=== PATIENT | male | born 1970 | race Caucasian/White ===

== ENCOUNTER 2019-06-27 17:45 | Observation (INO) | payer SELFPAY ==
[2019-06-27] MEDS ORDERED: niCARdipine HCL 25 MG in SODIUM CHLORIDE 0.9% 250ML 240 ML IVPB SCH (18:00)
--- NOTE | 2019-06-27 18:07 | ED.PDOC ---
History of Present Illness - General Chief Complaint: Blood Pressure Problem Stated Complaint: elevated BP,Anxiety Time Seen by Provider: 06/27/19 17:48 Source: patient, RN notes reviewed, Vital Signs reviewed Exam Limitations: no limitations - History of Present Illness Initial Comments: 48 y/o male here for elevated blood pressure over "the last 12-14 hours". He reports that he has difficult to control blood pressure and had been evaluated for pheochromocytoma. He said his kidneys were too weak to stand the dye they would use to find it so he just left it alone. He takes no meds. At this time he denies, h/a or chest pain Allergies/Adverse Reactions: Allergies NO KNOWN ALLERGY Allergy (Verified 06/27/19 18:07) Review of Systems - Review of Systems Constitutional: States: diaphoresis EENTM: States: no symptoms reported Respiratory: States: no symptoms reported Cardiology: States: no symptoms reported Gastrointestinal/Abdominal: States: no symptoms reported Genitourinary: States: no symptoms reported Musculoskeletal: States: no symptoms reported Skin: States: no symptoms reported Neurological: States: anxiety Hematologic/Lymphatic: States: no symptoms reported Family Medical History - Family History Father Family History: Unknown Living Status: Unknown Physical Exam - Physical Exam General Appearance: Alert, Comfortable, No apparent distress Eye Exam: bilateral normal Ears, Nose, Throat: hearing grossly normal, normal ENT inspection Neck: non-tender, full range of motion, supple Respiratory: chest non-tender, lungs clear, normal breath sounds, no respiratory distress Cardiovascular/Chest: regular rate, rhythm, no edema, no gallop, no JVD, no murmur Gastrointestinal/Abdominal: non tender, soft, no organomegaly Back Exam: normal inspection Extremity: normal range of motion, no pedal edema Neurologic: alert - normal gait, normal mood/affect, oriented x 3 Skin Exam: normal color Progress - Progress Progress: 06/27/19 18:16 EKG NSR 99, Incomplete RBBB, LVH, no STEMI QTc 456 Departure - Departure Clinical Impression: Hypertensive urgency Disposition: Admit Patient Condition: Fair Departure Forms: ED Discharge - Pt. Copy, Patient Portal Self Enrollment Instructions: DI for High Blood Pressure
[2019-06-27] MEDS ORDERED: niCARdipine HCL 2.5 MG/ML AMP IVPB ONE (18:09)
[2019-06-27] MEDS ORDERED: SODIUM CHLORIDE 0.9% 250ML 250 ML ONE (18:09)
--- NOTE | 2019-06-27 18:26 | RAD ---
EXAM: Chest,1 View CLINICAL INDICATION: 48-year-old male with hypertensive urgency. TECHNIQUE: Single view, AP portable chest was obtained. COMPARISON: None. FINDINGS: Unremarkable cardiac and mediastinal silhouette. Heart size is normal. Tortuous thoracic aorta. Lungs are clear without focal opacity, pneumothorax or pleural effusions. The visualized bones are within normal limits. IMPRESSION: No acute cardiopulmonary abnormalities. Electronically signed by: Debra Varma MD 06/27/2019 6:24 PM CDT
[2019-06-27] MEDS ORDERED: THIAMINE HCL 100 MG TAB PO ONE (18:35)
[2019-06-27] MEDS ORDERED: NICOTINE PATCH 21 MG TD ONE (20:02)
[2019-06-27] MEDS ORDERED: METOPROLOL TARTRATE 50 MG TAB PO SCH (21:00)
[2019-06-27] MEDS ORDERED: MORPHINE SULFATE INJ 10 MG/ML VIAL IV PRN (22:35)
[2019-06-27] MEDS ORDERED: SODIUM CHLORIDE 0.9% (FLUSH) 10 ML SYG IV PRN (22:35)
[2019-06-27] MEDS ORDERED: NITROGLYCERIN 0.4 MG 25 EA TAB SL PRN (22:35)
[2019-06-27] MEDS ORDERED: ACETAMINOPHEN 325 MG TAB PO PRN (22:35)
[2019-06-27] MEDS ORDERED: METOPROLOL TARTRATE INJ 5 MG/5 ML VIAL IV ONE (22:45)
[2019-06-27] MEDS ORDERED: cloNIDine HCL 0.1 MG TAB PO PRN (22:46)
[2019-06-27] MEDS ORDERED: IV SET AND CAP CHANGE INJ INJ SCH (23:00)
[2019-06-28] MEDS ORDERED: cloNIDine HCL 0.1 MG TAB ONE (00:15)
[2019-06-28 02:06] VITALS: TEMP 98
[2019-06-28] MEDS ORDERED: METOPROLOL TARTRATE INJ 5 MG/5 ML VIAL IV ONE (03:00)
[2019-06-28] MEDS ORDERED: cloNIDine HCL 0.1 MG TAB PO PRN (03:33)
[2019-06-28] MEDS ORDERED: METOPROLOL TARTRATE 50 MG TAB PO SCH (09:00)
[2019-06-28] MEDS ORDERED: ASPIRIN TABLET 325 MG TAB PO SCH (09:00)
[2019-06-28] MEDS ORDERED: SODIUM CHLORIDE 0.9% (FLUSH) 10 ML SYG IV SCH (09:00)
[2019-06-28] MEDS ORDERED: amLODIPine BESYLATE 5 MG TAB PO SCH (09:30)
[2019-06-28 10:39] VITALS: O2SAT 100
[2019-06-28] MEDS ORDERED: POTASSIUM CHLORIDE 20 MEQ TAB PO ONE (11:00)
[2019-06-28 11:22] VITALS: BP 166/99
--- NOTE | 2019-06-28 11:55 | SSS ---
SUPERVISING PHYSICIAN: Vernon Coulter MD DATE OF ADMISSION: 06/27/19 DATE OF DISCHARGE: 06/28/19 DISCHARGE DIAGNOSIS: 1. Symptomatic hypertensive crisis with admitting blood pressure of 262/141, requiring a Cardene drip in the Emergency Room. 2. History of hypertension, presently on no medications. 3. History of cerebrovascular accident/transient ischemic attack in February of 2017. 4. Tobacco abuse. 5. Anxiety. 6. Poor medical compliance. 7. Questionable history of pheochromocytoma that has not been treated. HISTORY OF PRESENT ILLNESS: This is a 48-year-old male patient who recently moved to [place] 2 or 3 months ago. He is actually going through a divorce and some personal issues. He has had a long history of hypertension and has actually been treated in the past for hypertension. For 1 to 2 days prior to coming to the Emergency Room, he felt that his blood pressure was up. He was actually having a headache with pounding in his head and chest, but there was no chest pain. He came to the Emergency Room and his vital signs were temperature 97.5, heart rate 105, blood pressure 262/141, respiratory rate 20, O2 saturation 96%. He was started on a Cardene drip and his blood pressure did come down to 168/118 and then was started on some IV metoprolol. Lab studies were drawn and his CBC was unremarkable. His potassium was slightly low at 3.2 and his AST was high at 49. Creatinine kinase was 330, but his other cardiac enzymes were negative. Urinalysis showed a small amount of urine blood with a small amount of urine bilirubin and 3 to 5 urine RBCs. His toxicology screen was positive for opiates. Otherwise, it was negative. His chest x-ray showed no acute cardiopulmonary abnormalities. Due to his extensive family history as well as his malignant hypertension on admission, he was placed in observation in the hospital. HOSPITAL COURSE: The Cardene drip was titrated off and he was started on metoprolol tartrate. Amlodipine was also added. An echocardiogram was done and the results are still pending. His blood pressure has somewhat stabilized. He has agreed to followup with Dr. Chowdhury at [facility] after discharge. PAST MEDICAL HISTORY: 1. Hypertension. 2. Questionable pheochromocytoma that has not been treated. 3. Transient ischemic attack/cerebrovascular accident in February of 2017. 4. Chronic insomnia. 5. Anxiety. 6. Past history of heavy alcohol intake although he no longer drinks large amounts. 7. Tobacco abuse. PAST SURGICAL HISTORY: 1. Shoulder repair x2. 2. Foot surgery. 3. Hand surgery. ALLERGIES: NO KNOWN DRUG ALLERGIES. FAMILY HISTORY: Positive for diabetes, hypertensive heart disease. SOCIAL HISTORY: He moved to [place] about 3 months ago. He is in the process of getting a divorce. He is unemployed. He smokes approximately 1 pack of cigarettes per day. He now drinks on a social basis although he used to be a heavy drinker about 10 years ago. REVIEW OF SYSTEMS: GENERAL: Positive for fatigue. Negative for fever or weight changes. HEENT: Negative for sinus symptoms, ear pain, vision changes or sore throat. RESPIRATORY: Negative for wheezing, coughing or shortness of breath. CARDIAC: Negative for chest pain, palpitations or tachycardia. Otherwise, as per history of present illness. GASTROINTESTINAL: Negative for nausea, vomiting, diarrhea, constipation or abdominal pain. GENITOURINARY: Negative for hematuria, dysuria or polyuria. MUSCULOSKELETAL: Positive for chronic back pain. Negative for arthralgias, myalgias. SKIN: Positive for some mild diaphoresis. Negative for lesions or rashes. NEUROLOGIC: Positive for anxiety and headache. Negative for seizures or dizziness. PHYSICAL EXAMINATION: VITAL SIGNS: Temperature 98, heart rate 78, blood pressure 168/103, respiratory rate 18, O2 saturation 98% on room air. GENERAL: This is a 48-year-old male patient sitting up in his chair in his room. He is in no acute distress. HEENT: Normocephalic, atraumatic. Pupils are equal and reactive. Oropharynx is clear. NECK: Supple without mass. RESPIRATORY: Essentially clear to auscultation bilaterally. CHEST: There is equal rise and fall of the chest with inspiration and expiration. CARDIOVASCULAR: Regular rate and rhythm. GASTROINTESTINAL: Abdomen is soft, nondistended, nontender. Bowel sounds are positive. EXTREMITIES: No cyanosis, clubbing or edema. NEUROLOGIC: Awake, alert and oriented times three. Cranial nerves II-XII are grossly intact as tested. SKIN: Warm and dry. LABORATORY: Followup labs are fairly unremarkable except his potassium is slightly low at 3.3. His echocardiogram report is pending. DISCHARGE PLAN: The patient will be discharged home in stable condition. He is to increase his activity as tolerated and resume his previous diet. He does not take any home medications at this time although he says he takes [id number] ibuprofen and Tylenol. We discussed the maximum amounts to be taken in one day of each of those medication. We discussed the medications that I ordered, which are metoprolol tartrate and amlodipine as well as giving him p.r.n. clonidine for an elevated blood pressure as needed. I also recommended he take a daily aspirin. I have gotten him a followup appointment with Dr. Eliel Chowdhury on 07/03/19 at noon at [facility]. He is to return to the hospital or followup with Dr. Chowdhury for any problems or complications. DISCHARGE MEDICATIONS: 1. Amlodipine 5 mg daily. 2. Aspirin 325 mg daily. 3. Clonidine 0.1 mg tablet q.6h. p.r.n. for systolic blood pressure greater than 190 or diastolic blood pressure greater than 100. 4. Metoprolol tartrate 50 mg b.i.d. #[id number] MTDD
[2019-06-28] MEDS ORDERED: diphenhydrAMINE HCL 25 MG CAP PO SCH (21:00)
== END 2019-06-28 13:10 | disposition home or self-care (01) ==
LOC: ER 17:45 → MS 20:33
PROVIDERS: ADMIT Nurse Practitioner Acute Care; ATTEND Nurse Practitioner Acute Care
DX: I16.0 Hypertensive urgency (principal); I11.9 Hypertensive heart disease without heart failure; F17.210 Nicotine dependence, cigarettes, uncomplicated; F41.9 Anxiety disorder, unspecified; R51 Headache; F51.04 Psychophysiologic insomnia; I45.10 Unspecified right bundle-branch block; F10.20 Alcohol dependence, uncomplicated; Y90.9 Presence of alcohol in blood, level not specified; Z79.82 Long term (current) use of aspirin; Z79.899 Other long term (current) drug therapy; Z86.73 Personal history of transient ischemic attack (TIA), and cerebral infarction without residual deficits; Z63.5 Disruption of family by separation and divorce
CPT/HCPCS: 96366; 96365; 96375; 96376; J2060 ×2; J7050; 82553; 80053 ×2; 80307; 80061; 36415 ×2; 81001; 85025 ×2; 82550; 84484; 71045; 99406; 99285; 93306; 93005 ×3; G0378

== ENCOUNTER 2020-01-28 17:54 | Emergency (ER) | payer SELFPAY ==
[2020-01-28] MEDS ORDERED: KETOROLAC TROMETHAMINE INJ 30 MG/ML VIAL IV ONE (18:25)
[2020-01-28] MEDS ORDERED: METOCLOPRAMIDE HCL INJ 10 MG/2 ML VIAL IV ONE (18:25)
[2020-01-28] MEDS ORDERED: diphenhydrAMINE HCL 50 MG/ML VIAL IV STA (18:25)
[2020-01-28] MEDS ORDERED: METOPROLOL TARTRATE INJ 5 MG/5 ML VIAL IV ONE ×3 (18:26→19:11)
--- NOTE | 2020-01-28 19:01 | ED.PDOC ---
History of Present Illness - General Chief Complaint: Headache Stated Complaint: headache, hypertension, lethargic Time Seen by Provider: 01/28/20 18:25 - History of Present Illness Initial Comments: PATIENT PRESENTS WITH A HEADACHE, HE HAS CHRONIC MEADOWS FOR MANY YEARS DUE TO DEGENERATIVE C SPINE PROBLEMS. HE IS SUPPOSED TO BE ON MULTIPLE BLOOD PRESSURE MEDS BUT HAS NOT TAKE IN WEEKS, BECAUSE HE RAN OUT AND "DOESN'T HAVE INSURANCE". MEADOWS TODAY IS TYPICAL FOR HIS HEADACHES, HE CAME TO [facility] PRIMARILY BECAUSE BLOOD PRESSURE WAS MORE ELEVATED THAN USUAL AT HOME. Timing/Duration: 4-6 hours Quality: severe Head Injury Location: frontal Recent Head Trauma: frequent headaches, chronic headaches Improving Factors: medication - OTC IBUPROFEN AND TYLENOL Worsening Factors: nothing Associated Symptoms: fatigue Allergies/Adverse Reactions: Allergies NO KNOWN ALLERGY Allergy (Verified 01/28/20 18:07) Home Medications: Ambulatory Orders Acetaminophen [8 Hour Arthritis Pain Rel] 1,950 mg PO DAILY 06/27/19 Cholecalciferol [Vitamin D3] 10,000 unit PO DAILY 06/27/19 DiphenhydrAMINE HCL [Benadryl] 100 mg PO BEDTIME 06/27/19 Diphenhydramine HCl (Sleep) [Unisom Sleepgels] 150 mg PO BEDTIME 06/27/19 Ibuprofen [Advil] 1,250 mg PO DAILY 06/27/19 Metoprolol Tartrate 50 mg PO BID #60 tab 06/28/19 amLODIPine BESYLATE [Norvasc] 5 mg PO DAILY #30 tab 06/28/19 cloNIDine HCL [Catapres] 0.1 mg PO Q6H PRN #20 tab 06/28/19 Aspirin [Aspirin 81 Low Dose] 81 mg PO DAILY 01/28/20 Metoprolol Succinate [Metoprolol Succinate ER] 100 mg PO DAILY #90 tab 01/28/20 amLODIPine BESYLATE [Norvasc] 5 mg PO DAILY #90 tab 01/28/20 Review of Systems - Review of Systems Constitutional: States: no symptoms reported EENTM: States: no symptoms reported Respiratory: States: no symptoms reported Cardiology: States: no symptoms reported Gastrointestinal/Abdominal: States: no symptoms reported Genitourinary: States: no symptoms reported Musculoskeletal: States: see HPI, neck pain Skin: States: no symptoms reported Neurological: States: headache Past Medical History (General) - Patient Medical History Hx Seizures: No Hx Stroke: No Hx Asthma: No Hx of COPD: No Hx Congestive Heart Failure: No Hx Pacemaker: No Hx Hypertension: Yes Hx Diabetes: No Hx Cancer: No Hx Hepatitis C: No Hx MRSA: No Surgical History: tonsillectomy - Vaccination History Hx Influenza Vaccination: No Hx Pneumococcal Vaccination: No - Social History Hx Tobacco Use: Yes Hx Alcohol Use: Yes Hx Substance Use: No Hx Physical Abuse: No Hx Emotional Abuse: No Family Medical History - Family History Father Family History: Unknown Living Status: Unknown Mother Living Status: Hx Family Asthma: No Hx Family Congestive Heart Failure: No Hx Family Hypertension: Yes Hx Family Stroke: No Hx Cardiac Disease: No Hx Family Diabetes: Yes Hx Family Cancer: No Physical Exam - Physical Exam General Appearance: Alert, Anxious, No apparent distress Neck: non-tender, full range of motion, supple, normal inspection Cardiovascular/Chest: normal peripheral pulses, regular rate, rhythm, no edema, no gallop Respiratory: chest non-tender, lungs clear, normal breath sounds, no respiratory distress Gastrointestinal/Abdominal: normal bowel sounds, non tender, soft Mental 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 Copy, Patient Portal Self Enrollment Instructions: DI for Headache Prescriptions: Metoprolol Succinate [Metoprolol Succinate ER] 100 mg PO DAILY #90 tab amLODIPine BESYLATE [Norvasc] 5 mg PO DAILY #90 tab Home Medications: Ambulatory Orders Acetaminophen [8 Hour Arthritis Pain Rel] 1,950 mg PO DAILY 06/27/19 Cholecalciferol [Vitamin D3] 10,000 unit PO DAILY 06/27/19 DiphenhydrAMINE HCL [Benadryl] 100 mg PO BEDTIME 06/27/19 Diphenhydramine HCl (Sleep) [Unisom Sleepgels] 150 mg PO BEDTIME 06/27/19 Ibuprofen [Advil] 1,250 mg PO DAILY 06/27/19 Metoprolol Tartrate 50 mg PO BID #60 tab 06/28/19 amLODIPine BESYLATE [Norvasc] 5 mg PO DAILY #30 tab 06/28/19 cloNIDine HCL [Catapres] 0.1 mg PO Q6H PRN #20 tab 06/28/19 Aspirin [Aspirin 81 Low Dose] 81 mg PO DAILY 01/28/20 Metoprolol Succinate [Metoprolol Succinate ER] 100 mg PO DAILY #90 tab 01/28/20 amLODIPine BESYLATE [Norvasc] 5 mg PO DAILY #90 tab 01/28/20 Additional Instructions: RECOMMEND FOLLOW UP IN 2-4 WEEKS WITH YOUR PCP FOR YOUR BLOOD PRESSURE.
[2020-01-28] MEDS ORDERED: METOPROLOL TARTRATE 50 MG TAB ONE (19:10)
[2020-01-28] MEDS ORDERED: METOPROLOL TARTRATE 50 MG TAB PO ONE (19:11)
[2020-01-28 19:51] VITALS: O2SAT 95
[2020-01-28 19:54] VITALS: BP 154/98; TEMP 97.4
== END 2020-01-28 19:53 | disposition home or self-care (01) ==
LOC: ER 17:54
DX: G44.209 Tension-type headache, unspecified, not intractable (principal); I10 Essential (primary) hypertension; Z79.899 Other long term (current) drug therapy; Z91.14 Patient's other noncompliance with medication regimen; Z87.891 Personal history of nicotine dependence; Z79.82 Long term (current) use of aspirin
CPT/HCPCS: J1200; J1885; J2765